=== PATIENT | female | born 1955 | race Caucasian/White ===

== ENCOUNTER 2023-08-02 09:07 | Outpatient (REF) | payer MEDICARE, OTHER, SELFPAY ==
--- NOTE | 2023-09-11 17:28 | MHC.SP.ADU ---
Referring provider: Obdulia Flores MD Reason for Referral: CAPD testing Type of Treatment: 47362 Evaluation Speech Sound Production WITH Language Date of Plan of Treatment: 07/31/23 Onset of Symptoms/Illness: 07/30/22 Date Treatment Started: 07/31/23 Medical Diagnosis: CAPD Primary Speech Language Diagnosis: R41.841 Cognitive communication disorder History Medical History: Patient Orientation: Alert & Oriented x 4 Social History: Employment Status: Retired Highest level of education obtained: Completed Doctorate Current Living Situation: Home with . Children live in the area. Assistive Devices in use: Comment: Past Speech Language Therapy: None. Other Therapies Seen in Current Calendar Year: Unknown Other: Swallowing History: Dysphagia Specific: Within Functional Limits Comments: Pre-eval Risk for Aspiration: Pre-evaluation Dietary Consistencies: Regular Pre-eval Liquid Intake: Thin Pre-eval Medication Intake: Whole with Liquid Reported Speech, Language, Cognition difficulties: Memory Cognition Comments: Quality of Life: Patient Stated Goal of Speech-Language Therapy: Assessment Speech Production: Within Functional Limits Clinical Impression: Intact Observations: Informal Voice Assessment: Voice Loudness: Normal Voice Nasal Resonance: Normal Voice Oral Resonance: Voice Phonatory-based Quality: Normal Voice Pitch: Normal Voice Other Observations: Clinical Impression: Intact Tests of Speech & Lang Adults: Clinical Impression: Did Not Test Tests of Cognition: RBANS Clinical Impression: Impaired Observations: The RBANS is considered a screening battery for cognitive function and is repeatable for the purpose of evaluating any changes in function. It is intended for use with adolescents and adults, ages 12 to 89 years. Composite domains assessed in this test are: Immediate Memory, Visuospatial/Constructional, Language, Attention, and Delayed Memory. Her scores are tabled below: R-BANS Update I.) Immediate Memory Index: 90 Ia.) List Learning: -- Scaled Score: 6 Ib.) Story Memory: -- Scaled Score: 11 The Immediate Memory Index measures, ?initial encoding and learning of complex and simple verbal information. Low scores on this index indicated difficulties with verbal learning.? The score is derived from the participant?s performance on the subtests List Learning and Story Memory. List Learning measures, ?rote verbal memory function.? Participants are asked to repeat back a list of ten words presented to them verbally across four trials. Poor performance on this subtest indicates that, ?the examinee may have difficulty learning new verbal information and that repetition may not be beneficial?, if they do not improve across trials. The Story Memory subtest measures, ?memory for conceptually related verbal information.? Here, a short story is read to them across two trials and they are asked to recall details from the story. ?The test is a measure of verbal memory functioning for information that is related?. As with List Learning, participants that do not demonstrate a positive learning curve across trials could indicate, ?difficulty with learning new verbal learning, and that repetition may not help, or that the examinee may have difficulty retrieving new information from memory. II.) Visuospatial/Constructional Index: 109 IIa.) Figure Copy: -- Scaled Score: 14 IIb.) Line Orientation: -- Percentile Group: 26-50 The Visuospatial/Constructional Index is derived from the Figure Copy and Line Orientation subtests. It measures, ?basic visuospatial perception and the ability to copy a design from a model?. Low performance with this index can indicate, ?difficulties with processing and using visuospatial information?, or, ?visual impairments or attention disorders such as patricia neglect?. The Figure Copy subtest requires the examinee to copy a complex geometrical design from a model that is present throughout the task. ?This requires many cognitive skills including visuospatial reasoning, attention to visual details, motor programming, and to a lesser degree, organization and fine-motor ability?. Points are given for specific details, as well as specific placement in the context of the entire image. The Line Orientation subtest measures, ?the examinee?s ability to correctly identify spatial orientation in two-dimensions?. Poor performance indicates significant visuospatial impairments in acuity and attention. III.) Language Index: 98 IIIa.) Picture Naming: -- Percentile Group: 51-75 IIIb.) Semantic Fluency: -- Scaled Score: 9 The Language Index is, ?a measure of expressive language functioning?. Low scores with this subtest ?would indicate difficulties with language functioning? and, ?while the overall score would still indicate language difficulties, the deficits may be more related to fluency versus naming skills.? The Picture Naming subtest is provided by showing the participant a series of 10 simple line drawing and asking them to name them. The Semantic Fluency subtest is a measure of, ?the examinee?s ability to retrieve and express words using a semantic prompt?. In brief, the examinee is given a category and asked to name as many exemplars as they can in 60 seconds. Low scores, ?indicate significantly impaired ability to retrieve and express verbal information from long-term memory stores?. IV.) Attention Index: 122 Niharika.) Digit Span: -- Scaled Score: 14 IVb.) Coding: -- Scaled Score: 13 The Attention Index is a derived from the Digit Span and Coding subtests. It is a measure of, ?simple auditory registration, visual scanning and processing speed. Low scores on this index indicate, ?difficulties with basic attention and processing speed?. Difficulties can vary between the subtests suggesting acute differences between auditory and visual processing and attention. Digit Span is a measure of, ?auditory registration and brief focused attention. Low scores can also indicate difficulties with auditory attention and registration?. In it, the examinee is read a series of single digit numbers and asked to repeat them back in the same order. ?Impairments in auditory acuity can also influence performance on this test?. Coding is a measure of, ?brief, focused, visual attention, visual scanning and processing speed?. In it, the examinee is given a payton at the top of the page where each symbol is associated with a different number. The examinee is then asked to fill out as many numbers to corresponding symbols as they can in 90 seconds. In incorporates the notion of diligence and sustained attention as well. Difficulties can indicate problems with, ?processing speed and focused visual attention?. V.) Delayed Memory Index: 116 Va.) List Recall: -- Percentile Group: 51-75 Vb.) List Recognition: -- Percentile Group: 26-50 Vc.) Story Recall: -- Scaled Score: 11 Vd.) Figure Recall: -- Scaled Score: 17 The Delayed Memory Index is derived by combining the subtest scores for List Recall, Story Recall, and Figure Recall, and cross-referencing them with the List Recognition subtest. Auditory and Visual subtest are combined together. Difference between subtests can be highlighted to provide more specific information about areas of deficit and strength. ?The deficits, may be more related to verbal more than visual memory, or free recall as opposed to recognition memory or general variability in memory functioning.? .) Total Scale Score: 100 (%ile=50) Impressions and Recommendations Summary: Natasha?s domain scores on the RBANS ranged the Average to Above Average range. She demonstrated ?relative area of strength in Attention (GT=624), both in the Average Range. Immediate Memory (SS=76) and Delayed Memory (SS=75) fell into the Below Average Range. Her lowest performance was with the Delayed Memory index (SS=52), in the Very Below Average Range.? Her Total Scale Score was 77, in the 6th percentile as compared to her age-matched peers. The Delayed Memory Index is derived by combining the participant?s performance on List Recall (<2 AZ), Story Recall (SS=1), Figure Recall (SS=3), and? List Recognition (>75th [place]). Most remarkable on this domain was the contrast on her scores on the related subtests, List Recall and List Recognition. On the recall condition she was asked to recall a list of 10 words that she was read in 4 trials at the beginning of the test. She was not able to name any of the words on the list when asked. List Recognition follows-up by presenting a group of 20 words, half of which where not on the list and asking the participant to respond Yes or No if they were on the list. On the List Recognition subtest she correctly responded to 16 out of 20 items.? Also of note, her performance on Figure Recall was in the very below average range suggesting her delayed recall is not limited just to her language processing. Recommendation for Speech Therapy: Further Testing Needed Time to Reassess: PRN Recommended Referrals to be Discussed with Primary Care Provider: Audiological Evaluation Patient Education: Completed: Yes Patient/Caregiver Education: Described Results of Evaluation Patient expressed understanding of evaluation Patient agrees with goals and treatment plan Comments/Barriers to Learning: Dump Grader Clinican/Clinical Fellow: No Supervisory Statement: N/A Speech Language Pathologist: Ozzie Green M.A., [facility])-ADMINISTRATOR
--- NOTE | 2023-09-28 12:45 | MHC.AU.AEV ---
Adult Audiological Evaluation Date of Visit: 08/02/23 Reason for Appointment: Natasha opted to pursue a full Central Auditory Processing evaluation after discussing her hearing difficulties with an senior architect/design manager that she met at a talk in [place]. Her hearing was reportedly tested at [facility] and within normal at that time. However, she continued to notice hearing difficulties, especially in adverse listening environments such as restaurants where she first noticed the problem. Natasha reported I seem to be having more and more trouble following one conversation when another conversation is taking place near me...it's like I want to hear both conversations at once and end up hearing neither. When asked if she can follow the conversation in a group of about five people in a busy restaurant, Natasha noted depends whether I'm interested in the conversation. I am easily distracted. When talking to one other person and there is a TV on in the same room and asked if she can follow what the person is saying, Natasha reported Yes, if I started the conversation. If they start the conversation, I usually don't tune into them initially, as I am absorbed in the TV program. She often misses the gist of certain conversations and is unsure if it is related to her hearing/processing or attention. Another specific listening environment Natasha has experienced difficulty is while playing pickleball - she often cannot hear when the score is called out from across the court by the other team. 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 She was diagnosed with ADHD in adulthood (about 10-15 years ago) and prescribed Adderall. However, she is not consistent in taking the medication. She reportedly had symptoms in childhood; however, managed to compensate well. She also has a history of breast cancer with chemotherapy and has noticed brain fog since then. There is a family history of Alzheimer's in her mother and grandmother and Natasha questions if her some of her noted difficulties are related to other cognitive changes as well. Does patient feel they have a hearing loss?: Yes If Yes, Which Ear?: Both Ears When Was Hearing Difficulty First Noticed?: Several years ago Has hearing been tested previously?: Yes Previous Hearing Test Results: [facility] September 2021 - Reportedly normal results Medical History: Medical History: Breast Cancer - Chemotherapy; ADHD Medication List: Adderall Otoscopy: Right Ear: Unremarkable Left Ear: Unremarkable Tympanometry: Performed to: To assess integrity of the middle ear system Right Ear: Normal Middle Ear System (Type A) Left Ear: Normal Middle Ear System (Type A) Acoustic Reflexes: Ipsilateral Probe Right: Probe Left: 500 Hz: Present 500 Hz: Present 1000 Hz: Present 1000 Hz: Present 2000 Hz: Present 2000 Hz: Present 4000 Hz: Absent 4000 Hz: Absent Otoacoustic Emissions: Frequency Range: 1.5-12 kHz Right Ear: Present OAEs 1.5-5 kHz; Reduced/absent OAEs 6-12 kHz Analysis: Present emissions suggest normal cochlear function; Reduced/Absent emissions suggest cochlear dysfunction Left Ear : Present OAEs 1.5-5 kHz; Reduced/absent OAEs 6-12 kHz Analysis: Present emissions suggest normal cochlear function; Reduced/Absent emissions suggest cochlear dysfunction Hearing Evaluation: Transducer: Insert Earphones; Method: Conventional Audiometry; Stimuli: Pure Tones Right Ear: Normal hearing .25-8 kHz Left Ear: Normal hearing .25-8 kHz Speech Labor Gang Supervisor Threshold (SRT): Method: Monitored Live Voice; Stimuli: Spondee Words Right Ear: 10 dB HL Left Ear: 5 dB HL Speech Recognition: Method: Recorded; Stimuli: W-22 List 1A Right Ear: 96% correct at 50 dB HL Left Ear: 96% correct at 50 dB HL Most Comfortable Level (MCL): Right Ear: 50 dB HL to speech Left Ear: 50 dB HL to speech Uncomfortable Loudness Level (UCL): Right Ear: 100, 100, 95, 95 at .5, 1, 2, and 4 kHz, respectively Left Ear: 100, 95, 90, 90 at .5, 1, 2, and 4 kHz, respectively QuickSIN: 0 dB SNR Loss Interpretation of Results: Discussed how attention and focus can impact listening and thus ability to store auditory information. Based on reported history and environments where Natasha notices difficulty, it is plausible that Natasha's reported hearing/processing difficulties are more related to her attention and distractibility during particular conversations. However, per Keanu Green, BUSHEL GIRL, there was a discrepancy in scores on her Speech, Language, Cognition evaluation between auditorily and non-auditorily presented tasks. Due to this, a full Central Auditory Processing evaluation may be warranted. Signature: Provider: Sury Blackwood, [facility]
== END 2023-08-02 09:08 | disposition home or self-care (01) ==
LOC: HO.SH 09:07
PROVIDERS: PCP Family Medicine; Visit Provider Family Medicine
DX: H93.293 Other abnormal auditory perceptions, bilateral (principal)
CPT/HCPCS: 92523; 92550; 92557; 92588; 92700